=== PATIENT | female | born 1995 | race Caucasian/White ===

== ENCOUNTER 2018-06-16 07:16 | Day surgery (SDC) | payer OTHER, SELFPAY ==
--- NOTE | 2018-06-16 | MASS_PTH ---
PATIENT: CARLITA PADILLA LOC: [facility] [place] U#:[id number] AGE/SX: 22/F ROOM: RE06/16/[address]: Dr. Reid Hernández MD : 1995 BED: DIS: 06/16/2018 SPEC #: [id number] RECD: 06/16/18 09:30 STATUS: ELIUD MOSES #: [id number] JOSE C: 06/16/18 00:[address]: Reid Hernández DEPT: SURGICAL PATHOLOGY RECD BY: Kyung Eagle ENTERED: 06/16/18 10:57 SP TYPE: Mass OTHR DR: Dr. Norman Townsend DO Tissues: A - Nasal septum, NOS B - Nasal septum, NOS Procedures: Frozen Section (charge) Surgery Specimen Level IV Frozen (no charge) HEADER OPERATION: Endoscopic nasal biopsy with frozen section PRE-OP DIAGNOSIS: Left nasal mass adherent to nasal septum TISSUE SUBMITTED: A ? Left nasal mass, B ? Left nasal mass #2 FROZEN SECTION DIAGNOSIS A. Left nasal mass, biopsy: Consistent with hemangioma. YAN:juventino 06/16/18 MICROSCOPIC DIAGNOSIS A. Left nasal mass, biopsy: Consistent with hemangioma. B. Left nasal mass #2, biopsy: Consistent with hemangioma. YAN:juventino 06/17/18 COMMENT Case has been reviewed in consultation with Dr. Carrasco who concurs with the above diagnosis. IDC:AM MICROSCOPIC DESCRIPTION Slides are reviewed. GROSS DESCRIPTION A - Received fresh for frozen section diagnosis labeled with the patient's name is a specimen designated left nasal mass. The specimen consists of a polypoid piece of delgado soft tissue measuring 1.5 x 1 x 0.5 cm. The specimen is inked, bisected and submitted entirely for frozen section diagnosis in one cassette. B - Received in fixative is one container labeled with the patient's name and designated left nasal mass #2. The specimen consists of a piece of delgado-pink soft tissue measuring 0.5 x 0.5 x 0.2 cm. The specimen is totally submitted in one cassette. / SJ:juventino 06/16/18 TC:1 CPT: 89418 x2, 90854
[2018-06-16 08:01] LABS: Internal QC Validated? YES +Cl - CLEAR BKGD; Pregnancy, Urine Negative Negative
[2018-06-16 08:04] VITALS: BP 114/59; PULSE 73; RESP 18; TEMP 37.1; O2SAT 100; BMI 19.3
[2018-06-16] MEDS: Oxymetazoline 0.05% 1 SPRAY SPRAY.BTL 15 SPRAY (09:25)
--- NOTE | 2018-06-16 09:34 | DCINST_ITS ---
You will use the following diet at home:: No restrictions Discharge Activity: Return to Normal Activity Call your doctor if your incision/area has: Sudden Increased Bleeding Allergies/Adverse Reactions: Allergies No Known Allergies Allergy (Verified 06/12/18 14:00) Medications to take at Discharge Super Ginseng 1.5 ml PO 4X/DAY 06/12/18 Super Vitamin C 5 ml PO 4X/DAY 06/12/18 Primary Care Physician: Norman Townsend DO [Primary Care Provider] - Test Results: Test results from this visit will be discussed in further detail at your follow- up appointment, if applicable.
--- NOTE | 2018-06-16 09:35 | PCM.OPRPT ---
Problem List (1) Nasal mass Status: Chronic Report of Operation Date of Procedure: 06/16/18 Pre-Operative Diagnosis: left nasal mass Post-Operative Diagnosis: left septal mass Surgery/Procedure Performed:: endoscopic excision left septal mass Type of Anesthesia:: General Description of Procedure: on the day of the procedure, after appropriate informed consent was obtained, the patient was brought to the operating room and placed in supine position on the operating table. she was placed under general endotracheal anesthesia by the anesthesiologist. the endotracheal tube was secured, the eyes were taped. the left nasal mass was injected with lidocaine/epinephrine. a usnita scizzor was used to excise the mass, which was emanating from the anterior mid-septum. this was 1cm x 2cm. this was sent to pathology and returned a benign hemangioma. an additional 4mm rim of tissue was removed from the septal mucosa including the mucoperichondrium. this area was cauterized with the suction bovie. an anterior nasal pack was placed. the patient was awoken from anesthesia and transferred to the PACU in stable condition.
--- NOTE | 2018-06-16 09:41 | OP.PCM_ITS ---
Problem List (1) Nasal mass Status: Chronic Report of Operation Date of Procedure: 06/16/18 Pre-Operative Diagnosis: left nasal mass Post-Operative Diagnosis: left septal mass Surgery/Procedure Performed:: endoscopic excision left septal mass Type of Anesthesia:: General Description of Procedure: on the day of the procedure, after appropriate informed consent was obtained, the patient was brought to the operating room and placed in supine position on the operating table. she was placed under general endotracheal anesthesia by the anesthesiologist. the endotracheal tube was secured, the eyes were taped. the left nasal mass was injected with lidocaine/epinephrine. a sunita scizzor was used to excise the mass, which was emanating from the anterior mid-septum. this was 1cm x 2cm. this was sent to pathology and returned a benign hemangioma. an additional 4mm rim of tissue was removed from the septal mucosa including the mucoperichondrium. this area was cauterized with the suction bovie. an anterior nasal pack was placed. the patient was awoken from anesthesia and transferred to the PACU in stable condition.
[2018-06-16 10:00] VITALS: BP 114/59; BP 118/56; PULSE 78; RESP 15; TEMP 36.8; O2SAT 100
[2018-06-16 10:15] VITALS: BP 114/59; BP 116/64; PULSE 76; RESP 16; O2SAT 100
[2018-06-16 10:28] VITALS: BP 114/59; BP 118/64; PULSE 79; RESP 16; TEMP 36.8; O2SAT 100
[2018-06-16 10:57] VITALS: BP 114/59
== END 2018-06-16 11:00 | disposition home or self-care (01) ==
LOC: SDC 07:17 → AC 07:19
PROVIDERS: Family Provider Family Medicine; PCP Family Medicine; Visit Provider Otolaryngology
PROC: (CPT 30100; principal; 2018-06-16 08:55)
DX: D18.09 Hemangioma of other sites (principal); J33.9 Nasal polyp, unspecified
CPT/HCPCS: 00160; 31237; 81025; 88304; 88305; 88331; J7120; J2405